=== PATIENT | female | born 1945 | race Caucasian/White ===

== ENCOUNTER 2025-03-07 23:20 | Observation (INO) | payer MEDICARE, BC, SELFPAY ==
[2025-03-07 23:29] VITALS: BP 138/84; PULSE 79; RESP 18; TEMP 37.1; O2SAT 94; BMI 22.0
--- NOTE | 2025-03-07 23:36 | ED_ITS ---
HPI - Dizziness General Time Seen by Provider: 23:36 Date Seen: 03/07/25 Chief Complaint: Dizziness/Vertigo Stated Complaint: Dizziness, head pain Time Seen by Provider: 03/07/25 23:36 Source: patient and RN notes reviewed Mode of arrival: ambulatory Limitations: no limitations History of Present Illness HPI Narrative: Delma is a very pleasant 79-year-old female currently on aspirin daily otherwise healthy who is brought to the emergency room by her son for evaluation regarding difficulty with speech and eye tracking. Delma notes that she had just return from a conference had supper and was getting ready for bed when she had the sudden onset of pain behind her left ear and into her scalp associated with difficulty seeing as well as movement. Her son notes that when he found her she was really not moving and was having a hard time with speech and word finding. This lasted for probably 5 minutes. That has since resolved but she feels like her eyes are not tracking as they normally should. Denies numbness or tingling of the body. Balance seems to be somewhat off when she walked down the stairs of her home with assistance. There was no leaning to 1 side or the other. 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 Patient denies recent cough cold congestion fever trauma chest pain shortness of breath. Onset of symptoms between 8050-4382 hours Related Data Home Medications ?Medication ?Instructions ?Recorded ?Confirmed aspirin 81 mg chewable tablet 81 mg PO DAILY 03/07/25 03/07/25 Allergies Allergy/AdvReac Type Severity Reaction Status Date / Time No Known Drug Allergies Allergy Verified 03/07/25 23:33 Review of Systems Status of ROS: Reports: 10 or more systems reviewed and unremarkable except as noted in History and below Const: Denies: fever, chills or fatigue Eyes: Reports: change in vision; Denies: blurry vision or seeing flashes ENMT: Denies: throat pain, neck pain, nasal discharge or nasal congestion Cardio: Denies: chest pain, palpitations, swelling of feet/ankles or shortness of breath with exertion Resp: Denies: shortness of breath or cough GI: Denies: abdominal pain, nausea, vomiting or diarrhea : Denies: painful urination or urinary frequency Musculo: Denies: neck pain Integ/Breast: Denies: rash or itching Neuro: Reports: headache (Left-sided) and dizziness; Denies: numbness in extremities or weakness in extremities Endo: Denies: fatigue PFSH PFSH Social History Smoking Status: Former smoker What tobacco products do you use: cigarettes Smoking quit date/years: >15 years ago Do you use any of these nicotine containing products: None How often do you have a drink containing alcohol: never AUDIT-C Alcohol total score: 0 Non-prescribed substance use: denies use Exam Narrative: Exam Narrative: Alert and oriented. Good speech without hesitation. Good pronunciation. Face symmetrical with eyebrow raise smile gritting of the teeth. She has two very slow beats nystagmus when she gazes to the right otherwise normal. Pupils are small EOM is full. Neck is supple. Heart with regular rate and rhythm and lungs are clear. Abdomen soft. Extremity strength all within normal limits. S ensation within normal limits. NIH SS 0 Const: Vital Signs, click to edit/add: Vital Signs - 24 hr 03/07/25 23:29 03/07/25 23:39 03/07/25 23:46 Temperature 98.8 F Pulse Rate 73 71 Pulse Rate [Pulse Oximeter] 79 Respiratory Rate 18 16 16 Blood Pressure 134/74 141/68 H Blood Pressure [Ri ght Upper Arm] 138/84 Pulse Oximetry 94 95 94 Oxygen Delivery Me thod Room Air 03/08/25 00:02 03/08/25 00:20 03/08/25 00:25 Temperature Pulse Rate 69 74 Pulse Rate [Pulse Oximeter] Respiratory Rate 15 14 Blood Pressure 139/73 141/64 H Blood Pressure [Ri ght Upper Arm] Pulse Oximetry 93 93 94 Oxygen Delivery Me thod Documenting provider has reviewed patient's vital signs: yes Course Course ED Course: Differential diagnosis includes but is not limited to acute stroke, TIA, migraine, anxiety. NIH SS at this time is 0. Patient quickly examined in room 5 and stroke code called given onset of symptoms between 10-10 30 and difficulty with word finding and speech. Patient has a negative NIH SS at this point but I do feel that CT CTA and neurology consult is appropriate in this case. Reevaluation(s) Reevaluation #1: CT is negative. I was able to speak to neurologist both pre and post CT and does recommend CTA which has been ordered. Consultations Consultation #1: Neurology consultation. At this time recommends full-dose aspirin and MRI tomorrow morning. Vital Signs Vital signs: Initial Vital Signs Temperature 98.8 F 03/07/25 23:29 Temperature Source Temporal Artery Scan 03/07/25 23:29 Pulse Rate 79 03/07/25 23:29 Respiratory Rate 18 03/07/25 23:29 Blood Pressure 138/84 03/07/25 23:29 Blood Pressure Mean 102 03/07/25 23:29 Blood Pressure Position Semi-Fowlers 03/07/25 23:29 Pulse Oximetry 94 03/07/25 23:29 Oxygen Delivery Method Room Air 03/07/25 23:29 Vital Signs Temperature 98.8 F 03/07/25 23:29 Pulse Rate 79 03/07/25 23:29 Respiratory Rate 18 03/07/25 23:29 Blood Pressure 138/84 03/07/25 23:29 Pulse Oximetry 94 03/07/25 23:29 Oxygen Delivery Method Room Air 03/07/25 23:29 Temperature 98.8 F 03/07/25 23:29 Pulse Rate 74 03/08/25 00:25 Respiratory Rate 14 03/08/25 00:25 Blood Pressure 141/64 H 03/08/25 00:25 Pulse Oximetry 94 03/08/25 00:25 Oxygen Delivery Method Room Air 03/07/25 23:29 Medications Administered Medications: Discontinued Medications Generic Name Dose Route Start Last Admin Trade Name Freq PRN Reason Stop Dose Admin Aspirin 324 mg 03/08/25 00:40 03/08/25 00:43 Aspirin 81 Mg Tab.Chew PO 03/08/25 00:41 324 mg ONCE ONE Administration MDM - Dizziness MDM Narrative Medical decision making narrative: 1. TIA-patient with reassuring exam CT/CTA. Was given full-dose aspirin per neurologist and MRI scheduled for tomorrow morning. Patient in normal sinus rhythm with reassuring laboratory values, electrolytes and creatinine. 2. Thyroid nodule-need to have nonemergent ultrasound at a later time. Patient was informed of this in the ED. 3. Disposition-transfer is the floor under the care of [facility] physician Dr. Welsh. Lab Data Attestation: I reviewed the patient's lab results. Labs: Lab Results 03/07/25 Range/Units 23:49 WBC 9.68 (4.50-11.00) K/uL RBC 4.41 (4.00-5.20) m/uL Hgb 13.7 (12.0-16.0) gm/dL Hct 42.0 (33.0-51.0) % MCV 95 (80-100) fL MCH 31 (26-34) pg MCHC 33 (32-36) gm/dL RDW Coeff of Von 13.8 (11.5-15.5) % Plt Count 216 (140-440) K/uL Neut % (Auto) 68.3 (42.0-72.0) % Lymph % (Auto) 19.0 L (20-44) % Mclennan % (Auto) 10.6 (0.0-11.0) % Eos % (Auto) 1.5 (0.0-7.0) % Baso % (Auto) 0.5 (0.0-3.0) % Neut # (Auto) 6.60 (1.7-7.0) K/uL Lymph # (Auto) 1.80 (0.90-2.90) K/uL Mclennan # (Auto) 1.00 H (0.00-0.90) K/UL Eos # (Auto) 0.15 (0.00-0.50) K/uL Baso # (Auto) 0.05 (0.00-0.30) K/uL Abs Immat Gran (auto) 0.01 (0.00-0.30) K/uL Imm/Tot Granulo (auto) 0.1 % Sodium 137 (135-149) mmol/L Potassium 3.6 (3.6-5.1) mmol/L Chloride 103 (96-114) mmol/L Carbon Dioxide 24 (20-32) mmol/L Anion Gap 10 (7-15) mEq/L BUN 25 (7-30) mg/dL Creatinine 0.8 (0.5-1.5) mg/dL Estimated Creat Clear 38.10 Estimated GFR 74 ml/min Glucose 130 H (60-115) mg/dL Calcium 9.9 (8.4-10.6) mg/dL Total Bilirubin 0.5 (0.1-1.5) mg/dL AST 29 (12-35) U/L ALT 19 (4-35) U/L Alkaline Phosphatase 80 (40-150) U/L C-Reactive Protein 2.0 H (0.5-1.0) mg/dL Total Protein 7.5 (6.0-8.3) g/dL Albumin 4.5 (3.3-5.0) g/dL Imaging Data CT scan - head: Attestation: I have reviewed the pertinent imaging results. My impression: I do not note any acute changes. Radiologist's impression: Brain parenchyma, CSF spaces, and extra-axial spaces: Areas of [id number] hypoattenuation within the bilateral periventricular white matter, consistent with chronic small vessel ischemic disease. Mild global brain parenchymal volume loss with commensurate sulcal and ventricular enlargement.The jorgensen-white differentiation is normal. No sign of mass, hemorrhage, or midline shift. No hydrocephalus. No extra-axial fluid collection. Skull base and calvarium: The visualized paranasal sinuses demonstrate no acute or significant findings. The mastoid air cells are clear. The visualized orbits are grossly unremarkable. No skull fracture. IMPRESSION: 1. No evidence of an acute intracranial abnormality. 2. Brain parenchyma findings consistent with chronic small vessel ischemic disease on a background of age-related involutional change. CTA head and neck: Attestation: I have reviewed the pertinent imaging results. Radiologist's impression: The aortic arch has a conventional anatomy. Mild atherosclerotic calcifications of the aortic arch. The great vessels remain patent. The common carotid arteries remain patent. Mild atherosclerotic calcifications of the carotid bulbs and bifurcations bilaterally. The cervical ICA segments remain patent bilaterally. The origins of the common carotid arteries remain patent. Medialized retroesophageal course of the carotid and internal carotid cervical common arteries bilaterally. Right vertebral dominant system. The cervical vertebral arteries remain patent. The origins of the vertebral arteries remain patent. Hypodense thyroid nodules, measuring 1.5 cm on the left. The visualized lung segura are unremarkable. PRELIMINARY IMPRESSION: 1. No hemodynamically significant stenoses of the cervical arterial vasculature. 2. Hypodense thyroid lobe nodules would be better evaluated on a nonemergent, outpatient thyroid ultrasound. PRELIMINARY FINDINGS: The intracranial ICA segments remain patent. There are mild atherosclerotic calcifications of the cavernous and supraclinoid ICA segments bilaterally. The MCAs remain normal in course and caliber and are patent bilaterally. The bilateral ACAs remain patent. Right vertebral dominant system. The vertebrobasilar system appears unremarkable. The visualized cerebellar arteries are unremarkable. The vegetable loader are normal in course and caliber and remain patent. No cerebral aneurysms or large vessel occlusions. PRELIMINARY IMPRESSION: No large vessel occlusion or intracranial aneurysm identified. ECG Data ECG interpretation date: 03/08/25 Interpretation: EKG by my read shows sinus rhythm at a rate of 68. I do not note any acute ST or T-wave changes. NV and QRS intervals within normal limits. Discharge Plan Discharge Clinical Impression: TIA (transient ischemic attack) Patient Disposition: Admitted As Observation Condition: Improved
[2025-03-07 23:39] VITALS: BP 134/74; PULSE 73; RESP 16; O2SAT 95
--- NOTE | 2025-03-07 23:45 | CRLHL7_ITS ---
For Patients: As a result of the Century Cures Act, medical imaging exams and procedure reports are released immediately into your electronic medical record. You may view this report before your referring provider. If you have questions, please contact your health care provider. INDICATION: Left-sided headache with 5 minute word-finding difficulty. TECHNIQUE: CT head without contrast. COMPARISON: None. FINDINGS: Brain parenchyma, CSF spaces, and extra-axial spaces: Areas of ehov-er-cprzahmn hypoattenuation within the bilateral periventricular white matter, consistent with chronic small vessel ischemic disease. Mild global brain parenchymal volume loss with commensurate sulcal and ventricular enlargement.The jorgensen-white differentiation is normal. No sign of mass, hemorrhage, or midline shift. No hydrocephalus. No extra-axial fluid collection. Skull base and calvarium: The visualized paranasal sinuses demonstrate no acute or significant findings. The mastoid air cells are clear. The visualized orbits are grossly unremarkable. No skull fracture. IMPRESSION: 1. No evidence of an acute intracranial abnormality. 2. Brain parenchyma findings consistent with chronic small vessel ischemic disease on a background of age-related involutional change. Please note that all CT scans at this facility use dose modulation, iterative reconstruction, and/or weight-based dosing when appropriate to reduce radiation dose to as low as reasonably achievable. Dictated by Jose Hayes MD @ 03/08/2025 12:01:50 AM (Electronically Signed)
[2025-03-07 23:46] VITALS: BP 141/68; PULSE 71; RESP 16; O2SAT 94
[2025-03-07 23:51] LABS: Basophils Absolute Auto 0.05 K/uL (0.00-0.30); Basophils Percent Auto 0.5 % (0.0-3.0); Eosinophils Absolute Auto 0.15 K/uL (0.00-0.50); Eosinophils Percent Auto 1.5 % (0.0-7.0); Hemoglobin* 13.7 gm/dL (12.0-16.0); Immature Granulocytes Abs Auto 0.01 K/uL (0.00-0.30); Immature Granulocytes Pct Auto 0.1 %; Mean Corpuscular HGB Conc 33 gm/dL (32-36); Mean Corpuscular Hemoglobin 31 pg (26-34); Mean Corpuscular Volume 95 fL (80-100); Monocytes Percent Auto 10.6 % (0.0-11.0); Neutrophils Percent Auto 68.3 % (42.0-72.0); Platelet Count* 216 K/uL (140-440); RDW Coefficient of Variation % 13.8 % (11.5-15.5); Red Blood Count 4.41 m/uL (4.00-5.20); White Blood Count* 9.68 K/uL (4.50-11.00)
[2025-03-07 23:53] LABS: Slide Review Reflex No
--- OUTSIDE RECORDS SUMMARY | 2025-03-07 23:58 | XMS_ITS | Encounter Summary ---
Author Organization [facility] Address [address] [place] [address] Care Team Providers Care Associate Professor Of Criminal Justice Name Role Phone Estefani Rodriguez M.D. Primary Care Provider [phone] Reason for Visit * Reason Comments Med Refill Encounter Details Date Type Department Care Team (Late st Contact Info) Description 02/20/2025 Refill Department of Family Medicine in [place], [place] [address] [place] [address] Estefani Rodriguez M.D. [address] [place] [address] Med Refill Social History Tobacco Use Types Packs/Day Years Used Date Smoking Tobacco: Former Cigarettes Passive Smoke Exposure: Never Smokeless Tobacco: Never Alcohol Use Standard Drinks/Week Comments Yes 5 (1 standard drink = 0.6 oz pur e alcohol) occasional C Utilities Answer Date Recorded In the past 12 months has e electric, gas, oil, or water Visualase threatened to shut off services in your home? No 11/17/2024 Humiliation, Afraid, Rape, and Kick questionnair e Answer Date Recorded Within the last year, have y ou been afraid of your partner or ex-partner? No 02/22/2024 Within the last year, have y ou been humiliated or emotionally abused in other ways by your partner or ex-partner? No Within the last year, have y ou been kicked, hit, slapped, or otherwise physically hurt by your partner or ex-partner? No 02/22/2024 Within the last year, have y ou been raped or forced to have any kind of sexual activity by your partner or ex-partner? No 02/22/2024 Social Connection and Isolat ion Panel [NHANES] Answer Date Recorded In a typical week, how many times do you talk on the phone with family, friends, or neighbors? Once a week 08/23/2022 How often do you get togethe r with friends or relatives? Once a week 08/23/2022 How often do you attend chur or faith services? More than 4 times per year 08/23/2022 Active Member of Clubs or Organizations Not on f ile 08/23/2022 How often do you attend meet ings of the clubs or organizations you belong to? More than 4 times per year 08/23/2022 Marital Status Not on file 08/23/2022 AUDIT-C Answer Date Recorded Q1: How often do you have a drink containing alc ohol? 2-3 times a week 08/23/2022 Q2: How many drinks containi ng alcohol do you have on a typical day when you are drinking? 1 or 2 08/23/2022 Q3: How often do you have si x or more drinks on one occasion? Patient declined 08/23/2022 Overall Financial Resource Strain (CARDIA) Answe r Date Recorded How hard is it for you to pa y for the very basics like food, housing, medical care, and heating? Not hard at all 01/28/2022 PHQ-2 Answer Date Recorded PHQ-2 Score 0 11/17/2024 [facility] Occupat ional Health - Occupational Stress Questionnaire Answer Date Recorded Do you feel stress - tense, restless, nervous, or anxious, or unable to sleep at night because your mind is troubled all the time - these days? To some extent 08/23/2022 Exercise Vital Sign Answer Date Recorde d On average, how many days pe r week do you engage in moderate to strenuous exercise (like a brisk walk)? 2 days 11/17/2024 On average, how many minutes do you engage in exercise at this level? 60 min 11/17/2024 Hunger Vital Sign Answer Date Recorded Within the past 12 months, y ou worried that your food would run out before you got the money to buy more. Never true 11/18/19 25 Within the past 12 months, t he food you bought just didn't last and you didn't have money to get more. Never true 11/17/2024 PRAPARE - Transportation Answer Date Re corded In the past 12 months, has l ack of transportation kept you from medical appointments or from getting medications? No 09/2024 In the past 12 months, has l ack of transportation kept you from meetings, work, or from getting things needed for daily living? No 11/17/2024 Depression Answer Date Recor ded PHQ-9 Total Score (max 27) 2 11/15 Nutrition Answer Date Recorded On average, how many serving s of fruits and vegetables do you eat per day (serving size is equal to 1 cup or approximately the size of a tennis ball)? 3-5 11/17/2024 Dental Answer Date Recorded Dental: Regular Dentist Yes 01/29/20 Employment Answer Date Recorded Employment status Retired 11/17/2024 Housing Stability Answer Date Recorded What is your living situation today? I have a [facility] place to live 11/17/2024 Education Answer Date Recorded What is the highest level of school you have completed or the highest degree you have received? Master's degree (e.g., MA, MS, Divine, MEd, THREAT MONITORING ANALYST, [employer]) 05/15/2020 Comments No Sex and Gender Information Value Date Recorded Sex Assigned at Female 10/27/2017 10:54 AM DIRECTOR OF MEDICARE Legal Sex Female 8:15 PM DIRECTOR OF MEDICARE Gender Identity Female 10/27/2017 10:54 AM DIRECTOR OF MEDICARE Sexual Orientation Straight 10/27/2017 10 :54 AM DIRECTOR OF MEDICARE documented as of this encounter Miscellaneous Notes * Telephone Encounter - Linda Bradford - 02/23/2025 2:28 PM CDT Needs Review: Med Refill Team is unable to forward request to provider. Discrepancy; Patient Med list shows 35 mg, pharmacy is requesting 70 mg Primary Provider: Estefani Rodriguez M.D. Requested Prescriptions Pending Prescriptions Disp Refills alendronate (Fosamax) 70 mg tablet [Pharmacy Med Name: ALENDRONATE SODIUM 70MG TABS] 12 tablet 0 Sig: TAKE 1 TABLET ONCE A WEEK WITH A FULL GLASS OF WATER, DO NOT EAT, DRINK, OR LIE DOWN FOR 30 MINUTES AFTER TAKING documented in this encounter Plan of Treatment Upcoming Encounters Date Type Department Care Team (Late st Contact Info) Description 05/28/2025 8:40 AM CDT Appointment Department of Laboratory Medicine in [place], [place] [address] [phone] Estefani Rodriguez M.D. [address] [place] [phone] 05/28/2025 8:50 AM CDT Appointment Department of Laboratory Medicine in [place], [place] [address] [place] [phone] Estefani Rodriguez M.D. [address] [place] [place] [place] [phone] 05/29/2025 12:30 PM CDT Office Visit Department of Family Medicine in [place], [place] [address] [place] [phone] Estefani Rodriguez M.D. [address] [phone] 05/29/2025 2:00 PM CDT Office Visit Department of Family Medicine in [place], [place] [address] [place] [phone] Estefani Rodriguez M.D. [address] [place] [place] [phone] documented as of this encounter Visit Diagnoses Not on filedocumented in this encounter Additional Health Concerns Assessment Noted Time PHQ-9 Depression Total Score: 2 11/15/19 24 11:12 AM DIRECTOR OF MEDICARE documented as of this encounter Care Teams Associate Professor Of Criminal Justice Relationship Specialty Start Date End Date Estefani Rodriguez M.D. [address] [place] [place] [id number] PCP - General 03/03/17 documented as of this encounter
--- OUTSIDE RECORDS SUMMARY | 2025-03-07 23:58 | XMS_ITS | Clinical Summary ---
Author Organization [employer] [facility] Address [facility] [place] [address] Care Team Providers Care Wood Machinist Apprentice Name Role Phone Estefani Rodriguez MD Primary Care Provider [phone] Estefani Rodriguez MD Unavailable [phone] Allergies No known active allergies Medications fluticasone-yolie meterol (ADVAIR) 250-50 mcg/Dose diskus inhaler Inhale 1 Puff by mouth 2 times daily. Active atenolol (TENORMIN) 50 mg tablet Take 50 mg by mouth once daily. Active CALCIUM CARBONATE/VITAM IN D2 (CALCIUM 600 + D ORAL) Take 2 tablets by mouth once daily. Active COQ10, UBIQUINOL, ORAL Take 10 mg by mouth once daily. Active omega-3 fatty acids-vitamin E (FISH OIL) 1,000 mg cap Take 2 capsules by mouth 2 times daily. Active MULTIVITAMIN ORAL Take 1 tablet by mouth once daily. Active amLODIPine (NORVASC) 10 mg tablet Take 10 mg by mouth once daily. Active albuterol HFA (PRO-AIR,VENTOL IN,PROVENTIL) 90 mcg/actuation inhaler Inhale 2 Puffs by mouth 4 times daily if needed. Active atorvastatin (LIPITOR) 40 mg tabletIndicatio ns:TIA (transient ischemic attack) Take 1 Tablet (40 mg) by mouth once daily. 30 Tablet 3 03/12/2022 Active alendronate (FOSAMAX) 70 mg tablet TAKE 1 TABLET ONCE A WEEK WITH A FULL GLASS OF WATER, DO NOT EAT, DRINK, OR LIE DOWN FOR 30 MINUTES AFTER TAKING 10/03/2024 Active mometasone-form oterol (DULERA) 100-5 mcg/actuation inhaler Inhale 2 Puffs by mouth two times daily. 05/23/2024 Active Encounters Date Type Department Care Team Description 01/08/2025 8:55 AM CDT - 01/08/2025 11:59 PM CDT Hospital Encounter [facility] [address] [place], [place] [id number] Estefani Rodriguez MD Visit for screening mammogram 01/08/2025 Travel from Last 3 Months Social History Tobacco Use Types Packs/Day Years Used Date Smoking Tobacco: Former Cigarettes Q uit: 1978 Smokeless Tobacco: Never Alcohol Use Standard Drinks/Week Comments Yes 0 (1 standard drink = 0.6 oz pur e alcohol) socially Interpersonal Safety Answer Date Record ed Are you being hit, kicked, p ushed or yelled at (see row info)? No 11/10/2024 Interpersonal Safety Abuse 12 - 18 Not on file 11/10/2024 Interpersonal Safety Ambulatory Vulnerability No t on file 11/10/2024 Comments No Sex and Gender Information Value Date Recorded Sex Assigned at Female 11/09/2023 9:42 AM SPECIAL EDUCATION DIRECTOR Legal Sex Female 5:39 AM SPECIAL EDUCATION DIRECTOR Gender Identity Female 11/09/2023 9:42 AM SPECIAL EDUCATION DIRECTOR Sexual Orientation Straight 11/09/2023 9: 42 AM SPECIAL EDUCATION DIRECTOR Obstetrics History Last Filed Vital Signs Vital Sign Reading Time Taken Comments Blood Pressure 148/67 11/10/2024 9:51 AM SPECIAL EDUCATION DIRECTOR Pulse 77 11/10/2024 9:51 AM SPECIAL EDUCATION DIRECTOR Temperature 36.9 C (98.4 F) 11/10/2024 9:51 AM SPECIAL EDUCATION DIRECTOR Respiratory Rate 18 11/10/2024 9:51 AM SPECIAL EDUCATION DIRECTOR Oxygen Saturation 97% 11/10/2024 9:51 AM SPECIAL EDUCATION DIRECTOR Inhaled Oxygen Concentration - - Weight 62.2 kg (137 lb 3.2 oz) 11/10/2024 9:51 A M SPECIAL EDUCATION DIRECTOR Height 154.9 cm (5' 1) 11/10/2024 9:51 AM SPECIAL EDUCATION DIRECTOR Body Mass Index 25.92 11/10/2024 9:51 AM SPECIAL EDUCATION DIRECTOR Plan of Treatment Health Maintenance Due Date Last Done Comments Tdap 11/18/1956 Depression screening for age 12+ 1955 BMI (ht and wt on same day) for age 18+ 11/18/1961 Tetanus booster 1963 Pneumococcal series for age 50+ (1 of 1 - PCV) 11/18/1993 Zoster (shingles) series for age 50+ (1 of 2) 11/18/1993 RSV vaccine for adults or (1 - 1-dose 75+ series) 11/18/2018 COVID-19 vaccine series ( season) 2024 05/24/2024, 07/07/2023, 07/13/2022, Additional history exists Influenza Vaccine (Season Ended) 2025 DEXA/DXA scan for age 65+ Completed 07/29/2015 Hepatitis B series for 19+ Aged Out N o longer eligible based on patient's age to complete this topic Medical Devices Implanted Type Area Parking Enforcement Officer Device Identifier Shelf Expiration Date Model / Serial / Lot Orthosorb Resorbable Pin Implanted:Qty: 1 on 10/03/2015 by Pardeep Kowalski DPM at [facility] Right: Foot DEPUY 10/19/2015 / / [id number] Ciro Scr Ft Implanted:Qty: 1 on 10/03/2015 by Pardeep Kowalski DPM at [facility] Right: Foot BIOMET / / [id number] Solid Ft Implanted:Qty: 1 on 10/03/2015 by Pardeep Kowalski DPM at [facility] Right: Foot BIOMET / / [id number] Procedures Procedure Name Priority Date/Time Associated Diagnosis Comments XR MAMMO RAMY BILAT SCREEN Routine 01/08/2025 9:08 AM CDT Visit for screening mammogram XR DXA BONE DENSITY 2 SITES AXIAL Routine 07/29/2015 8:54 AM SPECIAL EDUCATION DIRECTOR Bone disorder from Last 3 Months or Most Recently Relevant to Health Maintenance Results * XR MAMMO RAMY BILAT SCREEN (01/08/2025 9:08 AM CDT) Anatomical Region Laterality Modality BREASTS, Breast Left, Breast Right Bilateral Mammography Impressions 01/08/2025 3:14 PM CDT There is no radiographic evidence for malignancy. Recommend annual mammograms. MAMMOGRAM ASSESSMENT: ACR 1 Negative PATIENTS: You will also receive a letter with your examination results in an easy to read format. If you have questions about your results, please contact your referring provider. Narrative 01/08/2025 3:14 PM CDT For Patients: As a result of the Century Cures Act, medical imaging exams and procedure reports are released immediately into your electronic medical record. You may view this report before your referring provider. If you have questions, please contact your health care provider. XR MAMMO RAMY BILAT SCREEN [[id number]] CLINICAL HISTORY: This is an asymptomatic 79 y.o. patient. INDICATION FOR EXAM: Mammogram Screening. TECHNIQUE: CC and MLO views were obtained. This study was evaluated with the assistance of Computer-Aided Detection. Breast Tomosynthesis was used in interpretation. COMPARISON FILM: Yes 11/09/23 [facility] [place] [facility] 09/02/22 [facility] FINDINGS: There are scattered areas of fibroglandular density. There are no dominant masses, suspicious micro calcifications or areas of architectural distortion. us Estefani Rodriguez MD MAMMO Final Resul t * XR DXA BONE DENSITY 2 SITES (07/29/2015 8:54 AM SPECIAL EDUCATION DIRECTOR) Anatomical Region Laterality Modality Spine, HIPS, HIPL, HIPR Bone Den sitometry 07/30/2015 2:45 PM SPECIAL EDUCATION DIRECTOR Impressions 07/30/2015 3:18 PM SPECIAL EDUCATION DIRECTOR Osteopenia. No significant change in BMD since the prior exam. National Osteoporosis Foundation Recommendations for Pharmacologic Treatment: A hip or vertebral fracture T-score ? -2.5 at the femoral neck or spine after appropriate evaluation to exclude secondary causes Low bone mass (T-score between -1.0 and -2.5 at the femoral neck or spine) and a 10-year probability of a hip fracture ? 3% or a 10-year probability of a major osteoporosis-related fracture ? 20% based on the FRAX score Clinicians judgment and/or patient preferences may indicate treatment for people with 10-year fracture probabilities above or below these levels TERMS: BMD: Bone mineral density (g/cm2) T- score: Standard deviation of the patient's bone mineral density from that of a young adult. Z-score: Standard deviation of the patient's BMD from that of an age matched patient. VALUES according to the World Health Organization: Normal range: Plus or minus one standard deviation Osteoporosis: BMD of 2.5 standard deviations below that of a young adult (i.e. T score -2.5 or less) in a patient without preexisting fractures or 1.5 standard deviations below that of a young adult (i.e. T score -1.5) for a patient with preexisting fractures. Osteopenia: Values falling between one standard deviation and those values where osteoporosis is reached. The terms osteopenia and osteoporosis are valid for postmenopausal women and men age >50. For premenopausal women, men age <50, and children, bone mineral density characterization is based on Z score, with a Z score of < -2.0 indicating bone mineral density less than expected for age. 1FRAX score: Risk in percentage of hip or other major fracture within 10 years based on World Health Organization FRAX model. According to the International Society of Clinical Densitometry, FRAX with BMD measurement predicts risk of fractures better than BMD alone. FRAX does not take into account multiple clinical factors, therefore the patient's actual risk may be higher or lower than that predicted by FRAX . FRAX is not valid in patients who have been, or are being treated for osteoporosis by pharmacologic means. It has only been validated for postmenopausal women and men age >50. Cristiano Antony M.D. Body/Diagnostic Radiologist [employer] [email or web address] / Narrative 07/30/2015 3:18 PM SPECIAL EDUCATION DIRECTOR DEXA SCAN, 07/29/2015 INDICATION: 69-year-old woman. Postmenopausal. On calcium and vitamin D. COMPARISON: 06/13/2012. TECHNIQUE: L4 vertebral body excluded due to degenerative change. Bone mineral density study was performed using the [employer] bone densitometer. The results of the study are expressed as bone mineral density (BMD) are as follows: FINDINGS: Lumbar Spine L1-L3 BMD: 1.116 g/cm2 T-score: -0.5 Z-score: 1.2 Left Femoral Neck BMD: 0.813 g/cm2 T-score: -1.6 Z-score: 0.1 Right Femoral Neck BMD: 0.809 g/cm2 T-score: -1.6 Z-score: 0.1 FRAX score1: The 10-year probability of major osteoporotic fracture is 11.0% and of hip fracture is 1.9%. Estefani Rodriguez MD DEXA Final Resul t from Last 3 Months or Most Recently Relevant to Health Maintenance Insurance [facility] MEDICARE PROVIDER BASED Advance Directives * Full Code (Latest Code Status on File) Date Activated Date Inactivated Comments 10/03/2015 10:45 AM 10/03/2015 2:01 PM Question Answer Comments Code Status Discussion: Discussed * Full Code Date Activated Date Inactivated Comments 10/02/2015 1:07 PM 10/03/2015 10:45 AM Question Answer Comments Code Status Discussion: Discussed Care Teams Wood Machinist Apprentice Relationship Specialty Start Date End Date Estefani Rodriguez MD [address] [place] [id number] PCP - General Family Practice 11/19/14 Estefani Rodriguez MD [address] [place] [id number] Family Practice 11/19/14
--- OUTSIDE RECORDS SUMMARY | 2025-03-07 23:59 | XMS_ITS | Encounter Summary ---
Author Organization [facility] Address [address] [place] [address] Care Team Providers Care Mechanic Assistant Name Role Phone Estefani Rodriguez M.D. Primary Care Provider [phone] Reason for Referral * Outpatient (Routine) - Authorized Specialty Diagnoses / Procedures Referred By Paty andrea Referred To Contact Family Medicine Estefani Rodriguez M.D. [address] [place] [phone] Phone: tel: [facility] Region Referral ID Status Reason Start Date Expiration Date V isits Requested Visits Authorized [id number] Authorized 01/22/2025 07/24/2026 1 1 Scheduling Instructions Nurse AWV Do not schedule prior to due date to ensure insurance coverage Visit: Medicare Annual Wellness due on 02/23/2024. Encounter Details Date Type Department Care Team (Late st Contact Info) Description 01/22/2025 Orders Only [facility] PCP TH MNT Estefani Rodriguez M.D. [address] [place] [place] [phone] Social History Tobacco Use Types Packs/Day Years Used Date Smoking Tobacco: Former Cigarettes Passive Smoke Exposure: Never Smokeless Tobacco: Never Alcohol Use Standard Drinks/Week Comments Yes 5 (1 standard drink = 0.6 oz pur e alcohol) occasional [facility] Utilities Answer Date Recorded In the past 12 months has th e electric, gas, oil, or water company threatened to shut off services in your [...] 08/23/2022 How often do you attend chur ch or yazidism services? More than 4 times per year [...] Answer Date Recorded PHQ-2 Score 0 11/17/2024 [facility] - Occupational Stress [...] your living situation today? I have a [facility] place to live 11/17/2024 Education Answer Date Recorded What is the highest level of school you have completed or the highest degree you have received? Master's degree (e.g., MA, MS, Divine, MEd, FIELD INSPECTOR, ABA) 05/15/2020 Comments No Sex and Gender Information Value Date Recorded Sex Assigned at Female 10/27/2017 10:54 AM MARINE RAILWAY OPERATOR Legal Sex Female 8:15 PM MARINE RAILWAY OPERATOR Gender Identity Female 10/27/2017 10:54 AM MARINE RAILWAY OPERATOR Sexual Orientation Straight 10/27/2017 10 :54 AM MARINE RAILWAY OPERATOR documented as of this encounter Plan of Treatment Upcoming Encounters Date Type Department Care Team (Late st Contact Info) Description 05/28/2025 8:40 AM CDT Appointment Department of Laboratory Medicine in [place], [place] [address] [place] [phone] Estefani Rodriguez M.D. [address] [place] [phone] 05/28/2025 8:50 AM CDT Appointment Department of Laboratory Medicine in [place], [place] [address] [place] [phone] Estefani Rodriguez M.D. [address] [phone] 05/29/2025 12:30 PM CDT Office Visit Department of Family Medicine in [place], [place] [address] [place] [phone] Estefani Rodriguez M.D. [address] [place] [place] [place] [phone] 05/29/2025 2:00 PM CDT Office Visit Department of Family Medicine in [place], [place] [address] [place] [phone] Estefani Rodriguez M.D. [address] [place] [phone] Scheduled Referrals Name Type Priority Associated Diagnoses Orde r Schedule Family Medicine nurse visit (clinic) Outpatient Referral Routine Expected: 02/19/2025, Expires: 07/11/2025 documented as of this encounter Visit Diagnoses Not on filedocumented in this encounter Additional Health Concerns Assessment Noted Time PHQ-9 Depression Total Score: 2 11/15/19 24 11:12 AM MARINE RAILWAY OPERATOR documented as of this encounter Care Teams Mechanic Assistant Relationship Specialty Start Date End Date Estefani Rodriguez M.D. [address] [place] [phone] PCP - General 03/03/17 documented as of this encounter
--- OUTSIDE RECORDS SUMMARY | 2025-03-07 23:59 | XMS_ITS ---
Author Organization [facility] Address [address] [place] [address] Care Team Providers Care Coal Drier Operator Name Role Phone Estefani Rodriguez M.D. Primary Care Provider [phone] Active Problems * This document contains information received from the source organization and may not represent a complete record from that organization. 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 She was given high dose of Plavix on the day and recommend to have Plavix 75 mg daily for 21 dose and recommend to increase her statin by a neurologist. 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 Anxiety 07/02/2014 Mitral Valve Prolapse 02/07/2014 Assessment & Plan (11/21/2024 2:27 PM DOOR CLAMP OPERATOR): Asthma Mild Intermittent With History Of Tobacco Use 06/26/2012 Overview (02/08/2017): Asthma (bronchial) (allergic) Assessment & Plan (11/21/2024 2:27 PM DOOR CLAMP OPERATOR): Hyperlipidemia 06/26/2012 Assessment & Plan (11/21/2024 2:27 PM DOOR CLAMP OPERATOR): Orders: Lipid Panel; Future Osteopenia 05/30/2012 Assessment & Plan (11/21/2024 2:27 PM DOOR CLAMP OPERATOR): Leiomyoma (Fibroid) Uterus 05/30/2012 Bunion NOS 05/30/2012 Hypertension Essential Primary 05/28/2010 Overview (02/08/2017): Hypertension Essential, Benign Assessment & Plan (11/21/2024 2:27 PM DOOR CLAMP OPERATOR): Orders: CBC with Differential, Blood; Future Comprehensive Metabolic Panel; Future Urinalysis with Microscopic if Indicated: Urine, Voided; Future Current Treatment and Therapy Plans No current plan information found. Past Treatment and Therapy Plans No past plan information found. Lifetime Dose Tracking * Chemical Lifetime Dose Automatic Entry Manual Entr y Radiation 72.3 mGy 0 mGy 72.3 mGy Fluoro Time 1.6 minutes 0 minutes 1.6 minutes DAP (Gy-cm2) 4.49 Gy-cm2 0 Gy-cm2 4.49 Gy-cm2 Resolved Problems Problem Noted Date Diagnosed Date Resolved Date Polyp Gallbladder 08/03/2021 02/24/2023
--- OUTSIDE RECORDS SUMMARY | 2025-03-07 23:59 | XMS_ITS | Clinical Summary ---
Author Organization [facility] Address [address] [place] [address] Care Team Providers Care Opener Tender Name Role Phone Estefani Rodriguez M.D. Primary Care Provider [phone] Source Comments Patient records contain information from all sites at [facility]. For routine questions regarding patient records, call [phone] during business hours, M-F 8:00 AM - 5:00 PM Central Time. Record requests for emergency care only can be directed to [phone] at any time.[facility] Allergies No known active allergies Medications * This document contains information received from the source organization and may not represent a complete record from that organization. TURMERIC ROOT EXTRACT ORAL Take 300 mg by mouth once daily. 4 Active multivitamin tablet Take 1 tablet by mouth daily. 9 Active OM 3/E/LINOL/ALA/OL EIC/GLA/LIP (OMEGA 3-6-9 ORAL) Take 1 capsule by mouth daily. 1 Active UBIDECARENONE (ULTRA COQ10 ORAL) Take 1 capsule by mouth daily. 9 Active UNABLE TO FIND Eye vitamin daily Active aspirin [address] tablet Take 1 tablet (81 mg total) by mouth daily. 90 tablet 3 1 Active umeclidinium (INCRUSE ELLIPTA) 62.5 mcg/actuation inhaler Inhale 1 puff once daily. 1 each 3 3 Active alendronate (FOSAMAX) 35 mg tabletIndication s:post-menopausa l osteoporosis prevention Take 1 tablet (35 mg total) by mouth once a week Indications: post-menopausal osteoporosis prevention. Take with 8oz of water, on an empty stomach. Remain upright for 30min. 12 tablet 3 4 Active mometasone-formo terol (Dulera 100) 100-5 mcg/actuation inhaler Inhale 2 puffs 2 (two) times a day. Rinse mouth with water after use to reduce aftertaste and incidence of candidiasis. Do not swallow. 13 g 11 4 Active Additional Information Patient not taking.Reported on 11/21/2024 amLODIPine (Norvasc) 10 mg tablet Take 1 tablet (10 mg total) by mouth daily. 90 tablet 3 5 Active atenoloL (Tenormin) 50 mg tablet Take 1 tablet (50 mg total) by mouth daily. 90 tablet 3 5 Active atorvastatin (Lipitor) 40 mg tablet Take 1 tablet (40 mg total) by mouth daily. 90 tablet 3 5 Active lisinopriL 30 mg tablet Take 1 tablet (30 mg total) by mouth daily. 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 07/24/2014 Anxiety 07/02/2014 Mitral Valve Prolapse 02/07/2014 Assessment & Plan (11/21/2024 2:27 PM MACHINE PACKER): Asthma Mild Intermittent With History Of Tobacco Use 06/26/2012 Overview (02/08/2017): Asthma (bronchial) (allergic) Assessment & Plan (11/21/2024 2:27 PM MACHINE PACKER): Hyperlipidemia 06/26/2012 Assessment & Plan (11/21/2024 2:27 PM MACHINE PACKER): Orders: Lipid Panel; Future Osteopenia 05/30/2012 Assessment & Plan (11/21/2024 2:27 PM MACHINE PACKER): Leiomyoma (Fibroid) Uterus 05/30/2012 Bunion NOS 05/30/2012 Hypertension Essential Primary 05/28/2010 Overview (02/08/2017): Hypertension Essential, Benign Assessment & Plan (11/21/2024 2:27 PM MACHINE PACKER): Orders: CBC with Differential, Blood; Future Comprehensive Metabolic Panel; Future Urinalysis with Microscopic if Indicated: Urine, Voided; Future Resolved Problems Problem Noted Date Diagnosed Date Resolved Date Polyp Gallbladder 08/03/2021 02/24/2023 Encounters * This document contains information received from the source organization and may not represent a complete record from that organization. Date Type Department Care Team Description 02/20/2025 Refill Department of Family Medicine in [place], [place] [address] [place] [id number] Estefani Rodriguez M.D. Med Refill 01/22/2025 Orders Only [facility] [place] Estefani Rodriguez M.D. from Last 3 Months Immunizations Immunization Administration Dates Next Due H1N1 All Forms 07/03/2013 HZV (ZOSTAVAX) 02/15/2008 HepA / HepB 09/28/2011,03/07/2006,01/25/2006 Influenza high dose QV(65 ye ars or older) (PF) 06/28/2023 Influenza, Quadrivalent, Adj uvanted, Preservative Free 07/13/2022,07/03/2021,06/20/2020 Influenza, Unspecified 06/21/2017,2015,07/16/2015,2013,06/13/2012,06/10/2011 PCV13 07/22/2015 PPSV23 08/23/2011,12/15/2009 RSV: respiratory syncytial v irus (ABRYSVO) bivalent vaccine 06/28/2023 RZV (SHINGRIX) 08/07/2019,04/25/2019 SARS-COV-2 (COVID-19) - PFIZ ER (Discontinued)(12 years or older) 12/18/2021,07/09/2021,11/26/2020,2020 Tdap 04/10/2018,08/23/2011 TyVi (inj) 09/28/2011,01/25/2006 YF 01/25/2006 influenza trivalent high dos e (HD)(PF) 05/30/2019,08/03/2018,06/21/2017,2015,07/16/2015,06/27/2013 Family History Medical History Relation Name Comments Ischemic heart disease Aunt No Known Problems Daughter Siri Coronary artery disease Father Chacorta Hypertension Father Chacorta Ischemic heart disease Father Chacorta Ischemic heart disease Grandfather Cancer Mother Delma cervical cancer Dementia Mother Delma Rheum arthritis Mother Delma No Known Problems Son Mikey Ischemic heart disease Uncle Relation Name Status Comments Aunt Daughter Siri Alive Father Chacorta Grandfather Mother Delma Son Mikey Alive Uncle Social History Tobacco Use Types Packs/Day Years Used Date Smoking Tobacco: Former Cigarettes Passive Smoke Exposure: Never Smokeless Tobacco: Never Tobacco Cessation:Counseling Given: Yes Alcohol Use Standard Drinks/Week Comments Yes 5 (1 standard drink = 0.6 oz pur e alcohol) occasional [facility] Utilities Answer Date Recorded In the [...] often do you attend chur ch or spiritism services? More than 4 times per year [...] Answer Date Recorded PHQ-2 Score 0 11/17/2024 [place] of Occupat ional [facility] - Occupational Stress Questionnaire Answer Date Recorded [...] your living situation today? [facility] 11/17/2024 Education Answer Date Recorded What is the highest level of school you have completed or the highest degree you have received? Master's degree (e.g., MA, MS, Divine, MEd, MACHINE FILLER SERVICER, ABA) 05/15/2020 Comments No Sex and Gender Information Value Date Recorded Sex Assigned at Female 10/27/2017 10:54 AM MACHINE PACKER Legal Sex Female 8:15 PM MACHINE PACKER Gender Identity Female 10/27/2017 10:54 AM MACHINE PACKER Sexual Orientation Straight 10/27/2017 10 :54 AM MACHINE PACKER Last Filed Vital Signs Vital Sign Reading Time Taken Comments Blood Pressure 135/76 11/21/2024 1:51 PM MACHINE PACKER Pulse 68 11/21/2024 1:51 PM MACHINE PACKER Temperature 36.7 C (98 F) 02/22/2024 9:07 AM CDT Respiratory Rate 18 05/23/2024 8:20 AM CDT Oxygen Saturation 97% 04/23/2023 3:00 PM CDT Inhaled Oxygen Concentration - - Weight 60.5 kg (133 lb 6.1 oz) 11/21/2024 1:51 P M MACHINE PACKER Height 155 cm (5' 1.02) 02/22/2024 8:51 AM CDT Body Mass Index 25.18 02/22/2024 8:51 AM CDT Plan of Treatment Upcoming Encounters Date Type Department Care Team (Late st Contact Info) Description 05/28/2025 8:40 AM CDT Appointment Department of Laboratory Medicine in [place], [place] [address] [phone] Estefani Rodriguez M.D. [address] [place] [phone] 05/28/2025 8:50 AM CDT Appointment Department of Laboratory Medicine in [place], [place] [address] [place] [phone] Estefani [place] [address] [phone] 05/29/2025 12:30 PM CDT Office Visit Department of Family Medicine in [place], [place] [address] [place] [phone] Estefani Rodriguez M.D. [address] [place] [phone] 05/29/2025 2:00 PM CDT Office Visit Department of Family Medicine in [place], [place] [address] [place] [address] Estefani Rodriguez M.D. [address] [place] [address] Health Maintenance Due Date Last Done Comments Visit: Medicare Annual Wellness 02/23/2024 02/21/2023 COVID-19 Vaccine ( season) 2024 05/24/2024, 07/07/2023, 07/13/2022, Additional history exists Creatinine Level (Kidney Function Test) 2025 2024, 05/15/2024, 11/09/2023, Additional history exists Potassium Level 2025 2024, 04/20, 11/09/2023, Additional history exists Sodium Level 2025 2024, 04/20, 11/09/2023, Additional history exists Office Visit for Blood Pressure Check / Re-check 11/21/2025 11/21/2024, 02/24/2023, 08/24/2022 Visit: Chronic Disease, age 18+ 11/21/2025 11/21/2024 DTaP,Tdap,and Td Vaccines (3 - Td or Tdap) 04/10/2028 04/10/2018, 08/23/2011 Hepatitis A Vaccines Completed 09/28/2011, 03/07/2006, 01/25/2006 Hepatitis B Vaccines Completed 09/28/2011, 03/07/2006, 01/25/2006 Pneumococcal vaccine (50+ years) Completed 07/22/2015, 08/23/2011, 12/15/2009 Zoster Vaccines Completed 08/07/2019, 03/2019, 02/15/2008 RSV vaccine - (32-36 weeks) or 60+ years Completed 06/28/2023 Influenza Vaccine Completed 05/28/2024, , 07/13/2022, Additional history exists Depression Screening (Annual PHQ-2) Completed 11/21/2024, 11/17/2024 Fall Risk Screen (Annual) Completed 11/21/2024 Mammogram Discontinued 01/08/2025, 12/19, 11/09/2023, Additional history exists IPV Vaccines Aged Out No longer eligi ble based on patient's age to complete this topic Medical Devices Implanted Type Area Steam Trap Worker Device Identifier Shelf Expiration Date Model / Serial / Lot Etelvina Brady Isrrael Taylor - [id number] Implanted:Qty : 1 on 05/18/2022 by Braulio Cabezas II, M.D. at [facility] [place] Hardware e.g. pins/screws/ rods N/A: Abdomen [employer] [id number] / / Ocular Lens Ocular Lens Bilateral: Eye Procedures Procedure Name Priority Date/Time Associated Diagnosis Comments COMPREHENSIVE METABOLIC PANEL, S/P Routine 2024 10:34 AM MACHINE PACKER Hypertension Essential Primary from Last 3 Months or Most Recently Relevant to Health Maintenance Results * Comprehensive Metabolic Panel (2024 10:34 AM MACHINE PACKER) Potassium, P 4.2 3.6 - 5.2 mmol/L 2024 1:39 PM MACHINE PACKER MKTO Sodium, P 142 135 - 145 mmol/L 2024 1:39 PM MACHINE PACKER MKTO Chloride, P 104 98 - 107 mmol/L 2024 1:39 PM MACHINE PACKER MKTO Bicarbonate, P 24 22 - 29 mmol/L 2024 1:39 PM MACHINE PACKER MKTO Anion Gap, P 14 7 - 15 2024 1:39 PM MACHINE PACKER MKTO BUN (Blood Urea Nitrogen), P 18 6 - 21 mg/dL 2024 1:39 PM MACHINE PACKER MKTO Creatinine 0.59 0.59 - 1.04 mg/dL 2024 1:39 PM MACHINE PACKER MKTO Estimated GFR (eGFR) >90 >=60 mL/min/BS A 2024 1:39 PM MACHINE PACKER MKTO Comment: Estimated GFR calculated using the 2020 CKD_EPI creatinine equation. Calcium, Total, P 9.6 8.8 - 10.2 mg/dL 2024 1:39 PM MACHINE PACKER MKTO Glucose, P 97 70 - 140 mg/dL 2024 1:39 PM MACHINE PACKER MKTO Protein, Total, P 6.8 6.3 - 7.9 g/dL 2024 1:39 PM MACHINE PACKER MKTO Albumin, P 3.9 3.5 - 5.0 g/dL 2024 1:39 PM MACHINE PACKER MKTO Aspartate Aminotransferase (AST), P 20 8 - 43 U/L 2024 1:39 PM MACHINE PACKER MKTO Alkaline Phosphatase, P 76 35 - 104 U/L 2024 1:39 PM MACHINE PACKER MKTO Alanine Aminotransferase (ALT), P 12 7 - 45 U/L 2024 1:39 PM MACHINE PACKER MKTO Bilirubin, Total, P 0.6 0.0 - 1.2 mg/dL 2024 1:39 PM MACHINE PACKER MKTO Blood (Blood, Venous) 2024 10:34 AM MACHINE PACKER 2024 12:55 PM MACHINE PACKER us Estefani Rodriguez M.D. LAB BLOOD ADD-ON Final Re sult [facility] [address] [place] [address], [facility] [place] [address] [place] [address] from Last 3 Months or Most Recently Relevant to Health Maintenance Insurance MEDICARE [facility] [address] [id number] Advance Directives For more information, please contact: [phone] Documents on File Type Date Recorded Patient Cushion Stuffer Expl anation Advance Directives 01/20/2023 2:04 PM Carlos CastilloAlejandraorville PengLiu HCPOA/ADVOCATE/AGENT/ HAULAGE BOSS/SURROG ATE Advance Directives 05/21/2022 9:30 AM HCPOA /ADVOCATE/AGENT/ HAULAGE BOSS/SURROG ATE * Full Code (Latest Code Status on File) Date Activated Date Inactivated Comments 05/18/2022 6:33 AM 05/18/2022 11:43 AM Question Answer Comments Full Code: Discussed Healthcare Agents on File Name Relationship Healthcare Agent Relationship Communication Carlos Castillo Spouse Health Care Agent Mikey Castillo Son First Altern ate Health Care Agent Siri Alexa Daughter Second Alternate Health Care Agent Care Teams Opener Tender Relationship Specialty Start Date End Date Estefani Rodriguez M.D. [address] [place] [place] [phone] PCP - General 03/03/17
[2025-03-08] VITALS (16 sets, daily range): BP systolic 116–145; BP diastolic 59–73; PULSE 62–78; RESP 14–16; TEMP 36.4–36.7; O2SAT 93–96
[2025-03-08 00:04] LABS: Albumin* 4.5 g/dL (3.3-5.0); Chloride* 103 mmol/L (96-114); Sodium* 137 mmol/L (135-149)
[2025-03-08 00:05] LABS: Potassium* 3.6 mmol/L (3.6-5.1)
[2025-03-08 00:07] LABS: Alanine Aminotransferase* 19 U/L (4-35); Aspartate Amino Transferase* 29 U/L (12-35); Blood Urea Nitrogen* 25 mg/dL (7-30); Creatinine* 0.8 mg/dL (0.5-1.5); Estimated Glomerular Filt Rate 74 ml/min
--- NOTE | 2025-03-08 00:07 | CRLHL7_ITS ---
For Patients: As a result of the Century Cures Act, medical imaging exams and procedure reports are released immediately into your electronic medical record. You may view this report before your referring provider. If you have questions, please contact your health care provider. INDICATION: Left-sided headache with eye tracking difficulty. COMPARISON: None available. TECHNIQUE: CTA neck with contrast bolus tracking, 3D angiographic rendering using maximum intensity projection (MIP) and images permanently archived. FINDINGS: The origins of the great vessels are patent. There is carotid atherosclerosis bilaterally. There is no significant carotid artery stenosis or dissection. There is no significant vertebral artery stenosis or dissection. Multiple nodules within both lobes of the thyroid gland noting a dominant 1.6 cm heterogeneously hypodense nodule in the left lobe. IMPRESSION: 1. Patent cervical arterial vasculature without hemodynamically significant stenosis. 2. Multiple nodules within both lobes of the thyroid gland noting a dominant 1.6 cm heterogeneously hypodense nodule in the left lobe. Further assessment with thyroid ultrasound is recommended on a nonurgent basis. Please note that all CT scans at this facility use dose modulation, iterative reconstruction, and/or weight-based dosing when appropriate to reduce radiation dose to as low as reasonably achievable. Dictated by Anam Serrano MD @ 03/08/2025 11:40:01 PM (Electronically Signed)
--- NOTE | 2025-03-08 00:07 | CRLHL7_ITS ---
For Patients: As a result of the Century Cures Act, medical imaging exams and procedure reports are released immediately into your electronic medical record. You may view this report before your referring provider. If you have questions, please contact your health care provider. CLINICAL HISTORY: Left-sided headache with eye tracking difficulty. TECHNIQUE: Standard helical CT image acquisition through the head following the administration of intravenous contrast was performed. 3D and MIP reconstructions were performed at a separate workstation and permanently archived. COMPARISON: None available. FINDINGS: No intracranial proximal large vessel occlusion or flow-limiting luminal stenosis. No evidence of cerebral aneurysm. No findings to suggest an arterial-venous shunting lesion. The major dural venous sinuses and deep venous system are patent. IMPRESSION: No intracranial proximal large vessel occlusion, flow-limiting luminal stenosis, or cerebral aneurysm. Please note that all CT scans at this facility use dose modulation, iterative reconstruction, and/or weight-based dosing when appropriate to reduce radiation dose to as low as reasonably achievable. Dictated by Anam Serrano MD @ 03/08/2025 11:43:19 PM (Electronically Signed)
[2025-03-08 00:08] LABS: Alkaline Phosphatase* 80 U/L (40-150); Anion Gap 10 mEq/L (7-15); Bilirubin Total* 0.5 mg/dL (0.1-1.5); Calcium* 9.9 mg/dL (8.4-10.6); Carbon Dioxide* 24 mmol/L (20-32); Glucose* 130 mg/dL (60-115); Total Protein* 7.5 g/dL (6.0-8.3)
[2025-03-08] MEDS: ASPIRIN 81 MG TAB.CHEW 324 MG PO (00:43)
--- NOTE | 2025-03-08 01:13 | W.PM.THH&P_ITS ---
Telehealth- H&P: HPI History of Present Illness Date Seen: 03/08/25 Chief complaint: Dizziness, head pain Narrative: Delma Castillo is seen as an Interactive Telehealth visit. Delma Castillo is a 79 year old female who Has a significant past medical history Hypertension and hyperlipidemia now presents to the emergency department by her son with sudden onset Difficulty focusing visually with associated left ear pain behind the scalp and dizziness. She notes difficulty with communication and noted difficulty thinking with imbalance on her feet.She was also noted to have difficulty moving at this time. Total episode lasted approximately 45 minutes.Denies any numbness or tingling in her extremities. She denies any chest pain, palpitations, shortness of breath. No drooling was noted. No changes in voice. She has chronic right ear tinnitus which did not worsen.No pr ior episodes.Patient states she did not take her water pill today as she was attending a conference. In the emergency department, she underwent basic laboratory evaluation including CBC with WBC count 9.68, hemoglobin 13.7, hematocrit 42.0, platelet count 216. Chemistry sodium of 137, potassium of 3.6 BUN of 25 creatinine 0.8. Glucose was noted to be 130. CT of the head showed no evidence of acute intracranial abnormality. CTA head and neck were negative per ER physician. Teleneurology was consulted and recommended full dose aspirin and MRI brain in the a.m. She is subsequently admitted for further management. Review of Systems Status of ROS: Reports: 10 or more systems reviewed and unremarkable except as noted in History and below [facility] Social History (Updated 03/08/25 @ 01:28 by Bonnie Perrin MD) Smoking Status: Former smoker What tobacco products do you use: cigarettes Smoking quit date/years: >15 years ago Do you use any of these nicotine containing products: None How often do you have a drink containing alcohol: never AUDIT-C Alcohol total score: 0 Non-prescribed substance use: denies use Meds Home Medications and Allergies Home Medications ?Medication ?Instructions ?Recorded ?Confirmed ?Type aspirin 81 mg chewable tablet 81 mg PO DAILY 03/07/25 03/07/25 History Home Medication Comments: Atenolol,Lipitor Allergies Allergy/AdvReac Type Severity Reaction Status Date / Time No Known Drug Allergies Allergy Verified 03/07/25 23:33 Exam Narrative Exam Narrative: Physical Exam GENERAL: ?vital signs reviewed, well developed and nourished, in no distress HEENT: pupils are equal round and reactive to light, extraocular movements are grossly within normal limits and oral mucosa is moist. NECK: Supple without lymphadenopathy or thyromegaly according to nursing staff examination observation HEART: Regular rate and rhythm without any rubs, murmurs, or gallops. LUNGS: Clear to auscultation bilaterally with good air movement throughout ABDOMEN: Observation from nurse assisted exam, abdomen appears soft, nontender, and nondistended with Positive bowel sounds noted. EXTREMITIES: Strength and sensation is observed to be grossly within normal nicole its in the upper and lower extremities.? No focal strength deficit is observed. SKIN:? Observed warm and dry with color normal NEURO: Alert and oriented x3, speech is fluent, Cranial nerves II through XII are intact, strength 5 out of 5 bilateral upper and lower extremities, Able to move all 4 extremities Const Vital Signs, click to edit/add: Vital Signs - 24 hr 03/07/25 23:29 03/07/25 23:39 03/07/25 23:46 Temperature 98.8 F Pulse Rate 73 71 Pulse Rate [Pulse Oximeter] 79 Respiratory Rate 18 16 16 Blood Pressure 134/74 141/68 H Blood Pressure [Right Upper Arm] 138/84 Pulse Oximetry 94 95 94 Oxygen Delivery Method Room Air 03/08/25 00:02 03/08/25 00:20 03/08/25 00:25 Temperature Pulse Rate 69 74 Pulse Rate [Pulse Oximeter] Respiratory Rate 15 14 Blood Pressure 139/73 141/64 H Blood Pressure [Right Upper Arm] Pulse Oximetry 93 93 94 Oxygen Delivery Method Hospitalist - H&P: Result Labs Labs: Short CBC 03/07/25 Range/Units 23:49 WBC 9.68 (4.50-11.00) K/uL Hgb 13.7 (12.0-16.0) gm/dL Hct 42.0 (33.0-51.0) % Plt Count 216 (140-440) K/uL BMP 03/07/25 23:49 Sodium 137 Potassium 3.6 Chloride 103 Carbon Dioxide 24 BUN 25 Creatinine 0.8 Glucose 130 H Calcium 9.9 Liver Function 03/07/25 Range/Units 23:49 Total Bilirubin 0.5 (0.1-1.5) mg/dL AST 29 (12-35) U/L ALT 19 (4-35) U/L Alkaline Phosphatase 80 (40-150) U/L Albumin 4.5 (3.3-5.0) g/dL Assessment and Plan Assessment and plan (1) TIA (transient ischemic attack): Status: Acute (2) Hypercholesterolemia: Status: Acute (3) Hypertension: Status: Acute Plan 79-year-old female with significant past medical history Of hypertension and hypercholesterolemia now presents with word finding difficulty and speech difficulty suspicious for TIA. Telemetry monitoring Check MRI brain in the a.m. Continue with full dose aspirin daily as requested by teleneurology, c/w statin Check 2D echocardiogram (inpatient versus outpatient) Check lipid profile and hemoglobin A1c Consider event monitor on discharge PT OT Teleneurology consultation Hypertension Resume home meds once confirmed Hypercholesterolemia Resume home statin DVT prophylaxis Lovenox subcu Telehealth: Statement Statement Telehealth Visit: Today's History and Physical is provided via interactive telehealth by Shannon Welsh MD.? Patient is located at [facility].? Provider is located at [facility].? Nursing staff assisted with the patient's exam. The visit being done today meets criteria for a telehealth visit and the patient or patient?s parent/guardian is aware the visit is a telehealth visit. Camera Start Time: 02:25 Camera End Time: 02:44
--- NOTE | 2025-03-08 01:26 | CRLHL7_ITS ---
For Patients: As a result of the Cures Act, medical imaging exams and procedure reports are released immediately into your electronic medical record. You may view this report before your referring provider. If you have questions, please contact your health care provider. INDICATION: TIAs. TECHNIQUE: Brain MRI without contrast. COMPARISON: Head CT from 03/07/2025. FINDINGS: Regions of diffusion restriction involving the left posterior cingulate/superior occipital lobe and separately within the left occipital pole, both with DWI/FLAIR mismatch and consistent with acute infarcts. No evidence of acute or chronic intracranial blood products. Patchy FLAIR hyperintensities within the supratentorial white matter and brainstem, typical for chronic microvascular ischemic change. Moderate generalized parenchymal volume loss. No mass effect or herniation. No hydrocephalus or extra-axial collections. The pituitary gland, parasellar structures and optic chiasm are normal. Posterior fossa is normal. All the major intracranial vascular structures demonstrate normal flow-related signal. The orbital contents are normal. No calvarial or skull base marrow replacing process. No obstructive sinus disease. No extracranial soft tissue findings. IMPRESSION: 1. Acute infarcts within the left posterior cingulate/superior occipital lobe and separately within the left occipital pole, consistent with acute infarcts. These involve the left posterior cerebral artery territory. No recent ischemia elsewhere in the brain. 2. No evidence of acute intracranial hemorrhage. Dictated by Sandip Leonardo MD @ 03/08/2025 9:10:59 AM (Electronically Signed)
--- NOTE | 2025-03-08 01:39 | PC.NURSE ---
report given to [facility], patient to room [facility]
[2025-03-08 01:53] LABS: Appearance Urine Slightly Cloudy (Clear); Bilirubin Urine Negative (Negative); Blood Urine Negative (Negative); Color Urine Yellow (Yellow); Glucose Urine Negative (Negative); Ketones Urine Negative (Negative); Leukocyte Esterase Urine 2+ (Negative); Nitrite Urine Negative (Negative); Protein Urine Negative (Negative); Specific Gravity Urine <= 1.005 (1.000-1.030); Urobilinogen Urine 0.2 (0.2-1.0)
[2025-03-08 01:55] LABS: Bacteria Urine Few; RBC Urine 0-2 (0-2)
--- NOTE | 2025-03-08 08:31 | PC.NURSE ---
Patient arrived to the floor alert and oriented and vitally stable. No symptoms of stroke. Noted signs of forgetfulness through conversation. Could not recall the names of the medications she takes and appears to forget to take her meds a day or two on a possibly weekly basis. Feet and ankles are edematous. Plus three pitting. Left more so than the right. Patient told me she doesn?t know why she has swelling but later reported to the doctor that she may be taking a ?water pill? at home. Able to articulate fluently and no signs of memory deficit besides the noted forgetfulness. Stroke precautions. MRI in the morning. Suspected TIA. Patient appeared to be in a state of medical stability at time of transfer of care. ?
--- NOTE | 2025-03-08 09:23 | REH.SLP ---
Orders received, chart reviewed and met with patient who has no complaints of swallowing difficulty, changes in speech or communication changes. Completed a swallow screen. Oral motor exam revealed tongue deviation to the right which patient reports is baseline and very slight right facial droop. 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 Patient observed with consecutive straw swallows of thin liquids with no overt s/s of aspiration. No speech therapy indicated unless further issues arise.
[2025-03-08 09:45] LABS: Cholesterol* 166 mg/dL (90-199); Triglycerides* 154 mg/dL (40-149)
[2025-03-08 09:46] LABS: HDL Cholesterol* 61 mg/dL (>=50); LDL Cholesterol Calculated 74 mg/dL (<100)
[2025-03-08 10:09] LABS: Hemoglobin A1C* 5.4 % (0-5.6)
--- NOTE | 2025-03-08 10:28 | P.IMPN_ITS ---
Assessment and Plan Assessment and plan (1) Stroke: Problem comment: - R face weakness, dysarthria, R occipital headache, abnormal vision, felt balance was off. Symptoms are now mostly resolved. - On MRI today: Acute infarcts within the left posterior cingulate/superior occipital lobe and separately within the left occipital pole, consistent with acute infarcts. These involve the left posterior cerebral artery territory. No recent ischemia elsewhere in the brain. - I spoke over the phone with Dr. Jewell from [facility] who will see this patient via video call at 11:45 a.m., who recommends starting plavix 75mg daily (no loading dose) in addition to aspirin 325mg daily, continue current dose of atorvastatin because LDL is 74 and cerebral arteries are patent, ECHO before dishcarge, avoid driving until evaluated by outpatient OT or ophthalmology, Outpatient PCP in 1 week, outpatient neuro in 2 months, Ziopatch x 1 month with possibly also Link monitor. - Holding amlodipine, lisinopril, atenolol to allow for permissive HTN - Continue atorvastatin at 40 mg - Aspirin 325mg daily (got another dose this am), start daily plavix - ECHO pending - Speech therapy has seen and screened. No additional recommendations - PT states okay to discharge home without assistive device, recommends outpatient PT - OT evaluation pending Status: Acute (2) Hypertension: Problem comment: - holding antihypertensive medications to allow for permissive HTN in the setting of stroke Status: Chronic (3) Hypercholesterolemia: Problem comment: - continue atorvastatin, as above Status: Chronic Subjective Time Seen by Provider: 09:35 Date Seen: 03/08/25 Interval history: Delma tells me she came in with sudden onset of R face weakness, trouble speakin g, balance problems, right-sided headache in the back of her head, and problems with coordination. Delma feels better today, but still notes a feeling that her vision is not completely resolved. She says she wouldn't feel comfortable driving yet because of her concerns about vision. She says that her vision yesterday felt like a piece of the object she was looking at was missing or that she could not see the object as a whole, but only in pieces. Exam Narrative: Exam Narrative: General: No acute distress. Awake, alert, oriented x3. No pallor. No jaundice. Oropharynx: Clear. Mucous membranes moist. Cardiovascular: Regular rate and rhythm. No murmurs, gallops, or rubs. Respiratory: Clear to auscultation bilaterally. No wheezes or crackles. Abdomen: Bowel sounds present. Soft, nondistended, nontender. Extremities: Trace ankle edema, left more than right. Calves are nontender to palpation. Neuro: Pronator drift is present. Mild right lower facial droop is present. Tongue deviates to the right. Right shoulder is lower than the left shoulder at rest. Cranial nerves 2-12 are otherwise intact. Extraocular movements are full. No nystagmus. Peripheral vision and vision are grossly intact, tested at long, medium, and short distance. Strength is 5/5 in all 4 extremities. Light touch sensation is intact in face body and extremities. Coordination is intact in upper and lower extremities. Const: Vital Signs, click to edit/add: Vital Signs - 24 hr 03/07/25 23:29 03/07/25 23:39 03/07/25 23:46 Temperature 98.8 F Pulse Rate 73 71 Pulse Rate [Pulse Oximeter] 79 Respiratory Rate 18 16 16 Blood Pressure 134/74 141/68 H Blood Pressure [Ri ght Arm] Blood Pressure [Ri ght Upper Arm] 138/84 Pulse Oximetry 94 95 94 Oxygen Delivery Me thod Room Air 03/08/25 00:02 03/08/25 00:20 03/08/25 00:25 Temperature Pulse Rate 69 74 Pulse Rate [Pulse Oximeter] Respiratory Rate 15 14 Blood Pressure 139/73 141/64 H Blood Pressure [Ri ght Arm] Blood Pressure [Ri ght Upper Arm] Pulse Oximetry 93 93 94 Oxygen Delivery Me thod 03/08/25 01:25 03/08/25 01:25 03/08/25 01:50 Temperature Pulse Rate Pulse Rate [Pulse Oximeter] Respiratory Rate Blood Pressure 145/72 H Blood Pressure [Ri ght Arm] Blood Pressure [Ri ght Upper Arm] Pulse Oximetry 96 Oxygen Delivery Me thod Room Air 03/08/25 01:55 03/08/25 01:55 03/08/25 02:05 Temperature 97.7 F Pulse Rate 66 Pulse Rate [Pulse Oximeter] 67 Respiratory Rate 16 16 Blood Pressure Blood Pressure [Ri ght Arm] 145/72 H Blood Pressure [Ri ght Upper Arm] Pulse Oximetry 96 96 Oxygen Delivery Me thod Room Air Room Air 03/08/25 02:20 03/08/25 02:45 03/08/25 02:55 Temperature Pulse Rate Pulse Rate [Pulse Oximeter] Respiratory Rate Blood Pressure 125/70 118/65 124/69 Blood Pressure [Ri ght Arm] Blood Pressure [Ri ght Upper Arm] Pulse Oximetry Oxygen Delivery Me thod 03/08/25 04:15 03/08/25 04:20 Temperature 97.5 F L 97.5 F L Pulse Rate 69 Pulse Rate [Pulse Oximeter] 69 Respiratory Rate 16 16 Blood Pressure 116/59 L Blood Pressure [Ri ght Arm] 116/59 L Blood Pressure [Ri ght Upper Arm] Pulse Oximetry 93 93 Oxygen Delivery Me thod Room Air Labs Labs: Laboratory Results - last 24 hr 03/07/25 03/08/25 03/08/25 23:49 01:50 09:24 WBC 9.68 RBC 4.41 Hgb 13.7 Hct 42.0 MCV 95 MCH 31 MCHC 33 RDW Coeff of Von 13.8 Plt Count 216 Neut % (Auto) 68.3 Lymph % (Auto) 19.0 L [place] % (Auto) 10.6 Eos % (Auto) 1.5 Baso % (Auto) 0.5 Neut # (Auto) 6.60 Lymph # (Auto) 1.80 [place] # (Auto) 1.00 H Eos # (Auto) 0.15 Baso # (Auto) 0.05 Abs Immat Gran (auto) 0.01 Imm/Tot Granulo (auto) 0.1 Sodium 137 Potassium 3.6 Chloride 103 Carbon Dioxide 24 Anion Gap 10 BUN 25 Creatinine 0.8 Estimated Creat Clear 38.10 Estimated GFR 74 Glucose 130 H Hemoglobin A1c 5.4 Calcium 9.9 Total Bilirubin 0.5 AST 29 ALT 19 Alkaline Phosphatase 80 C-Reactive Protein 2.0 H Total Protein 7.5 Albumin 4.5 Triglycerides 154 H Cholesterol 166 LDL Cholesterol, Calc 74 HDL Cholesterol 61 Urine Color Yellow Urine Appearance Slightly Cloudy A Urine pH 6.0 Ur Specific [place] <= 1.005 Urine Protein Negative Urine Glucose (UA) Negative Urine Ketones Negative Urine Blood Negative Urine Nitrite Negative Urine Bilirubin Negative Urine Urobilinogen 0.2 Ur Leukocyte Esterase 2+ A Urine RBC 0-2 Urine WBC 5-10 A Ur Squamous Epith Cells None Urine Bacteria Few A Lab Acknowledgement Test Added Ordering Physician: Shannon Welsh MD Date of Service: 03/08/25 Procedure(s): MR head/brain wo con Accession Number(s): [id number] cc: Shannon Welsh MD; Provider,Not a Local~ For Patients: As a result of the Cures Act, medical imaging exams and procedure reports are released immediately into your electronic medical record. You may view this report before your referring provider. If you have questions, please contact your health care provider. INDICATION: TIAs. TECHNIQUE: Brain MRI without contrast. COMPARISON: Head CT from 03/07/2025. FINDINGS: Regions of diffusion restriction involving the left posterior cingulate/superior occipital lobe and separately within the left occipital pole, both with DWI/FLAIR mismatch and consistent with acute infarcts. No evidence of acute or chronic intracranial blood products. Patchy FLAIR hyperintensities within the supratentorial white matter and brainstem, typical for chronic microvascular ischemic change. Moderate generalized parenchymal volume loss. No mass effect or herniation. No hydrocephalus or extra-axial collections. The pituitary gland, parasellar structures and optic chiasm are normal. Posterior fossa is normal. All the major intracranial vascular structures demonstrate normal flow-related signal. The orbital contents are normal. No calvarial or skull base marrow replacing process. No obstructive sinus disease. No extracranial soft tissue findings. IMPRESSION: 1. Acute infarcts within the left posterior cingulate/superior occipital lobe and separately within the left occipital pole, consistent with acute infarcts. These involve the left posterior cerebral artery territory. No recent ischemia elsewhere in the brain. 2. No evidence of acute intracranial hemorrhage. Dictated by Sandip Leonardo MD @ 03/08/2025 9:10:59 AM (Electronically Signed) Progress Note: Quality Stroke Contraindication Not Initiating IV-Tpa: Not indicated (symptoms improved) Onset of Symptoms Date: 03/07/25 Onset of Symptoms Time: 22:00 Rehab Services Assessed: Speech therapy (PT also assessed, OT assessment pending)
[2025-03-08] MEDS: ASPIRIN EC 325 MG TABLET PO (10:42)
[2025-03-08] MEDS: SODIUM CHLORIDE 0.9 % (FLUSH) 10 ML SYRINGE 5 ML IVF (10:43)
--- NOTE | 2025-03-08 11:33 | PM.DS1 ---
DS: Providers Provider Date Seen: 03/08/25 Date of admission: 03/08/25 01:41 Primary care physician: Not a Local Provider Admitting Clinician: Shannon Welsh MD Consults: 03/08/25 01:22 Consult to Physical Therapy [CONS] Routine Comment: Reason(s) for PT Consult:: Evaluate and Treat Any Restrictions?:: No Restrictions Consult to Speech Therapy [CONS] Routine Comment: Reason(s) for Speech Consult:: Speaking Difficulty 03/08/25 01:24 Consult to Occupational Therapy [CONS] Routine Comment: Reason(s) for OT Consult:: Evaluate and Treat Any Restrictions?:: No Restrictions Attending Physician on discharge: Tish Marti MD Date of Discharge: 03/08/25 DS: Diagnosis Discharge Diagnosis (1) Stroke: Status: Acute Problem details: - R face weakness, dysarthria, R occipital headache, abnormal vision, felt balance was off. Symptoms are now mostly resolved. - On MRI today: Acute infarcts within the left posterior cingulate/superior occipital lobe and separately within the left occipital pole, consistent with acute infarcts. These involve the left posterior cerebral artery territory. No recent ischemia elsewhere in the brain. - I spoke over the phone with Dr. Jewell from [facility] who will see this patient via video call at 11:45 a.m., who recommends starting plavix 75mg daily (no loading dose) in addition to aspirin 325mg daily, continue current dose of atorvastatin because LDL is 74 and cerebral arteries are patent, ECHO before dishcarge, avoid driving until evaluated by outpatient OT or ophthalmology, Outpatient PCP in 1 week, outpatient neuro in 2 months, Ziopatch x 1 month with possibly also Link monitor. - Holding amlodipine, lisinopril, atenolol to allow for permissive HTN - Continue atorvastatin at 40 mg - Aspirin 325mg daily (got another dose this am), start daily plavix - ECHO completed 03/09 before discharge, reassuring. - Speech therapy has seen and screened. No additional recommendations - PT states okay to discharge home without assistive device, recommends outpatient PT - OT evaluation pending (2) Hypercholesterolemia: Status: Chronic Problem details: - continue atorvastatin, as above (3) Hypertension: Status: Chronic Problem details: - holding antihypertensive medications to allow for permissive HTN in the setting of stroke DS: Summary Hospital Course Hospital Course: 79 y/o female presented with sudden onset of R face weakness, trouble speaking, balance problems, right-sided headache in the back of her head, and problems with coordination. Delma feels better today, but still notes a feeling that her vision is not completely resolved. She says she wouldn't feel comfortable driving yet because of her concerns about vision. She says that her vision yesterday felt like a piece of the object she was looking at was missing or that she could not see the object as a whole, but only in pieces. Exam positive for pronator drift, R lower face and shoulder droop, tongue deviation to the right. She will be seen by stroke neurology via video today and have an ECHO prior to discharge. Please see diagnoses above for details. NOTE TO PCP: ZIOpatch at discharge (will be placed at discharge). If ziopatch is negative, will need LINQ. Time Spent with Patient Time attestation: Total time spent providing and/or coordinating discharge services: Today I spent 60 minutes seeing and discharging the patient, reviewing Expanse and EPIC notes/diagnostics/labs, discussing the care plan with Dr. ALANIZ from stroke Neurology and our care team that includes social work, PT/OT, pharmacy, RT, [facility] and documenting my impressions and plan in the medical record. Exam Narrative: Exam Narrative: See my exam findings documented in my progress note from today. Const: Vital Signs, click to edit/add: Vital Signs - 24 hr 03/07/25 23:29 03/07/25 23:39 03/07/25 23:46 Temperature 98.8 F Pulse Rate 73 71 Pulse Rate [Pulse Oximeter] 79 Respiratory Rate 18 16 16 Blood Pressure 134/74 141/68 H Blood Pressure [Ri ght Arm] Blood Pressure [Ri ght Upper Arm] 138/84 Pulse Oximetry 94 95 94 Oxygen Delivery Me thod Room Air 03/08/25 00:02 03/08/25 00:20 03/08/25 00:25 Temperature Pulse Rate 69 74 Pulse Rate [Pulse Oximeter] Respiratory Rate 15 14 Blood Pressure 139/73 141/64 H Blood Pressure [Ri ght Arm] Blood Pressure [Ri ght Upper Arm] Pulse Oximetry 93 93 94 Oxygen Delivery Me thod 03/08/25 01:25 03/08/25 01:25 03/08/25 01:50 Temperature Pulse Rate Pulse Rate [Pulse Oximeter] Respiratory Rate Blood Pressure 145/72 H Blood Pressure [Ri ght Arm] Blood Pressure [Ri ght Upper Arm] Pulse Oximetry 96 Oxygen Delivery Me thod Room Air 03/08/25 01:55 03/08/25 01:55 03/08/25 02:05 Temperature 97.7 F Pulse Rate 66 Pulse Rate [Pulse Oximeter] 67 Respiratory Rate 16 16 Blood Pressure Blood Pressure [Ri ght Arm] 145/72 H Blood Pressure [Ri ght Upper Arm] Pulse Oximetry 96 96 Oxygen Delivery Me thod Room Air Room Air 03/08/25 02:20 03/08/25 02:45 03/08/25 02:55 Temperature Pulse Rate Pulse Rate [Pulse Oximeter] Respiratory Rate Blood Pressure 125/70 118/65 124/69 Blood Pressure [Ri ght Arm] Blood Pressure [Ri ght Upper Arm] Pulse Oximetry Oxygen Delivery Me thod 03/08/25 04:15 03/08/25 04:20 03/08/25 07:00 Temperature 97.5 F L 97.5 F L 97.9 F Pulse Rate 69 Pulse Rate [Pulse Oximeter] 69 78 Respiratory Rate 16 16 16 Blood Pressure 116/59 L Blood Pressure [Ri ght Arm] 116/59 L 142/72 H Blood Pressure [Ri ght Upper Arm] Pulse Oximetry 93 93 93 Oxygen Delivery Me thod Room Air Room Air DS: Data Data Completed and Pending Completed studies during hospitalization: 03/08/2025 EKG: Normal sinus rhythm, 60 beats per minute, left axis deviation, possible anterior infarct, age undetermined. Ordering Physician: Bonnie Perrin M.D. Date of Service: 03/07/25 Procedure(s): CT head/brain wo con Accession Number(s): [id number] cc: Bonnie Perrin M.D.; Provider,Not a Local~ For Patients: As a result of the Century Cures Act, medical imaging exams and procedure reports are released immediately into your electronic medical record. You may view this report before your referring provider. If you have questions, please contact your health care provider. INDICATION: Left-sided headache with 5 minute word-finding difficulty. TECHNIQUE: CT head without contrast. COMPARISON: None. FINDINGS: Brain parenchyma, CSF spaces, and extra-axial spaces: Areas of [id number] hypoattenuation within the bilateral periventricular white matter, consistent with chronic small vessel ischemic disease. Mild global brain parenchymal volume loss with commensurate sulcal and ventricular enlargement.The jorgensen-white differentiation is normal. No sign of mass, hemorrhage, or midline shift. No hydrocephalus. No extra-axial fluid collection. Skull base and calvarium: The visualized paranasal sinuses demonstrate no acute or significant findings. The mastoid air cells are clear. The visualized orbits are grossly unremarkable. No skull fracture. IMPRESSION: 1. No evidence of an acute intracranial abnormality. 2. Brain parenchyma findings consistent with chronic small vessel ischemic disease on a background of age-related involutional change. Please note that all CT scans at this facility use dose modulation, iterative reconstruction, and/or weight-based dosing when appropriate to reduce radiation dose to as low as reasonably achievable. Dictated by Jose Hayes MD @ 03/08/2025 12:01:50 AM (Electronically Signed) Ordering Physician: Shannon Welsh MD Date of Service: 03/08/25 Procedure(s): MR head/brain wo con Accession Number(s): [id number] cc: Shannon Welsh MD; Provider,Not a Local~ For Patients: As a result of the Cures Act, medical imaging exams and procedure reports are released immediately into your electronic medical record. You may view this report before your referring provider. If you have questions, please contact your health care provider. INDICATION: TIAs. TECHNIQUE: Brain MRI without contrast. COMPARISON: Head CT from 03/07/2025. FINDINGS: Regions of diffusion restriction involving the left posterior cingulate/superior occipital lobe and separately within the left occipital pole, both with DWI/FLAIR mismatch and consistent with acute infarcts. No evidence of acute or chronic intracranial blood products. Patchy FLAIR hyperintensities within the supratentorial white matter and brainstem, typical for chronic microvascular ischemic change. Moderate generalized parenchymal volume loss. No mass effect or herniation. No hydrocephalus or extra-axial collections. The pituitary gland, parasellar structures and optic chiasm are normal. Posterior fossa is normal. All the major intracranial vascular structures demonstrate normal flow-related signal. The orbital contents are normal. No calvarial or skull base marrow replacing process. No obstructive sinus disease. No extracranial soft tissue findings. IMPRESSION: 1. Acute infarcts within the left posterior cingulate/superior occipital lobe and separately within the left occipital pole, consistent with acute infarcts. These involve the left posterior cerebral artery territory. No recent ischemia elsewhere in the brain. 2. No evidence of acute intracranial hemorrhage. Dictated by Sandip Leonardo MD @ 03/08/2025 9:10:59 AM (Electronically Signed) Labs on day of discharge: Labs from last 24 hours 03/08/25 03/08/25 03/07/25 09:24 01:50 23:49 WBC 9.68 RBC 4.41 Hgb 13.7 Hct 42.0 MCV 95 MCH 31 MCHC 33 RDW Coeff of Von 13.8 Plt Count 216 Neut % (Auto) 68.3 Lymph % (Auto) 19.0 L [place] % (Auto) 10.6 Eos % (Auto) 1.5 Baso % (Auto) 0.5 Neut # (Auto) 6.60 Lymph # (Auto) 1.80 [place] # (Auto) 1.00 H Eos # (Auto) 0.15 Baso # (Auto) 0.05 Abs Immat Gran (auto) 0.01 Imm/Tot Granulo (auto) 0.1 Sodium 137 Potassium 3.6 Chloride 103 Carbon Dioxide 24 Anion Gap 10 BUN 25 Creatinine 0.8 Estimated Creat Clear 38.10 Estimated GFR 74 Glucose 130 H Hemoglobin A1c 5.4 Calcium 9.9 Total Bilirubin 0.5 AST 29 ALT 19 Alkaline Phosphatase 80 C-Reactive Protein 2.0 H Total Protein 7.5 Albumin 4.5 Triglycerides 154 H Cholesterol 166 LDL Cholesterol, Calc 74 HDL Cholesterol 61 Urine Color Yellow Urine Appearance Slightly Cloudy A Urine pH 6.0 Ur Specific [place] <= 1.005 Urine Protein Negative Urine Glucose (UA) Negative Urine Ketones Negative Urine Blood Negative Urine Nitrite Negative Urine Bilirubin Negative Urine Urobilinogen 0.2 Ur Leukocyte Esterase 2+ A Urine RBC 0-2 Urine WBC 5-10 A Ur Squamous Epith Cells None Urine Bacteria Few A Lab Acknowledgement Test Added Preliminary micro results at discharge 03/08/25 01:50 Urine Culture - Preliminary Urine,Clean Catch Culture in Progress Discharge Plan Discharge Disposition: Home, Self-Care Date of Admission: 03/08/25 01:41 Attending Provider on Discharge: Tish Marti Primary Care Provider: Provider,Not a Local Condition: Improved Anticipated Discharge Date/Time: 03/08/25 15:37 Discharge Medications: New aspirin 325 mg Tablet,Delayed Release (Dr/Ec) 325 mg PO DAILY Qty: 30 0RF clopidogrel 75 mg Tablet 75 mg PO DAILY Qty: 30 0RF Continued alendronate 70 mg tablet 70 mg PO Q7D atorvastatin 40 mg tablet 40 mg PO DAILY Held amlodipine 10 mg tablet 10 mg PO DAILY Hold Instructions: Resume on 03/10/25. lisinopril 30 mg tablet 30 mg PO DAILY Hold Instructions: Resume on 03/10/25. atenolol 50 mg tablet 50 mg PO DAILY Hold Instructions: Resume on 03/10/25. Discontinued aspirin 81 mg tablet,chewable 81 mg PO DAILY Discharge Orders: Discharge Order (Routine); Ordered 03/08/25 Ordered By: Chava Benavides Patient Education: Aspirin (By mouth), Clopidogrel (By mouth), Transient Ischemic Attack (DC), Zio (Home Heart Monitor) Additional Instructions: - ZIO patch at discharge - f/u with PCP in one week - f/u with neurology in 2 months - Avoid driving until evaluated by outpatient ophthomology or outpatient occupational therapy Activity Level: No Restrictions Discharge Diet: Low Fat/Low Cholesterol Follow Up Appointments: Provider,Not a Local [Primary Care Provider, Family Practice] - 03/18/25 2:05 pm Referral Note: [facility] for Post-hospital follow up appointment. Appointment is with Dr. Razia Fernandes. Forms: C-sam Info Instructions
[2025-03-08] MEDS: CLOPIDOGREL 75 MG TABLET PO (14:18)
--- NOTE | 2025-03-08 15:20 | PC.NURSE ---
[id number]: Pt. AOX4, moves independently, and makes needs known. Pt. needed encouragement to eat. Consumed 50% of breakfast. Stroke and medication education done, pt. verbalized understanding. Pt. is forgetful. Pt. worked with PT and OT. Current d/c plan is will p/u to bring pt. back home to [facility] this evening.
== END 2025-03-08 17:36 | disposition home or self-care (01) ==
LOC: ED 03-08 00:46 → MEDSURG 03-08 01:42
PROVIDERS: Family Medicine; Admitting Provider Internal Medicine; Emergency Provider Family Medicine; Visit Provider Internal Medicine
DX: I63.9 Cerebral infarction, unspecified (principal); E78.00 Pure hypercholesterolemia, unspecified; E78.5 Hyperlipidemia, unspecified; I10 Essential (primary) hypertension; Z79.82 Long term (current) use of aspirin; R42 Dizziness and giddiness; R51.9 Headache, unspecified; Z87.891 Personal history of nicotine dependence
CPT/HCPCS: 36415; 70450; 70496; 70498; 70551; 80053; 80061; 81001; 82962; 83036; 85025; 86140; 87086; 93005; 93306; 94761; 97112; 97116; 97161; 97165; 99215; 99284; 99285; A9270; G0378; Q9967